=== PATIENT | male | born 1990 | race Caucasian/White ===

== ENCOUNTER 2019-03-25 19:28 | Emergency (ER) | payer SELFPAY ==
[2019-03-25] MEDS ORDERED: fentaNYL 100 MCG/2 ML INJ ONE (19:48)
[2019-03-25] MEDS ORDERED: fentaNYL 100 MCG/2 ML INJ NASAL ONE (19:50)
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
[2019-03-25 20:23] VITALS: BP 113/91
== END 2019-03-25 20:27 | disposition home or self-care (01) ==
PROC: 0RSJXZZ Reposition Right Shoulder Joint, External Approach (ICD-10-PCS; principal; 2019-03-25)
DX: S43.004A Unspecified dislocation of right shoulder joint, initial encounter (principal); V18.0XXA Pedal cycle driver injured in noncollision transport accident in nontraffic accident, initial encounter; Y93.55 Activity, bike riding
CPT/HCPCS: J3010